=== PATIENT | male | born 1995 | race Caucasian/White ===

== ENCOUNTER 2023-05-04 22:36 | Emergency (ER) | payer MEDICAID ==
[~2023-05-04] VITALS: Ht 193 cm; Wt 108.9 kg
[2023-05-04 22:51] VITALS: BP_SYST 140
--- NOTE | 2023-05-04 22:57 | NUR ---
Patient to ER bed 06 to gown for evaluation. Side rails up. Report given to CLAUDIA MARR.
--- NOTE | 2023-05-04 22:57 | NUR ---
Dr. Novak at bedside with patient for MSE.
[2023-05-04] MEDS ORDERED: IBUP-1969 PO (23:11)
[2023-05-04 23:55] VITALS: BP_SYST 122
--- NOTE | 2023-05-04 23:57 | NUR ---
Patient given written and verbal discharge instructions and verbalizes understanding. ER MD discussed with patient the results and treatment provided. Patient in stable condition. ID arm band removed. Rx of IBUPROFEN given. Patient educated on pain management and to follow up with PMD. Pain Scale 0/10. Opportunity for questions provided and answered. Medication side effect fact sheet provided.
== END 2023-05-04 23:57 | disposition home or self-care (01) ==
LOC: SED 22:36
DX: S06.0X0A Concussion without loss of consciousness, initial encounter (principal); Z79.899 Other long term (current) drug therapy; W50.0XXA Accidental hit or strike by another person, initial encounter; Y93.66 Activity, soccer; Y92.322 Soccer field as the place of occurrence of the external cause; Y99.8 Other external cause status
CPT/HCPCS: 70450-TC; 76376; 99284